=== PATIENT | male | born 1975 | race Two or more races ===

== ENCOUNTER → 2018-12-23 | Outpatient (CLI) | payer OTHER | END | disposition home or self-care (01) | LOC: RAD 11:10 | PROVIDERS: ATTEND Family Medicine | DX: J20.9 Acute bronchitis, unspecified (principal) | CPT/HCPCS: 71046 ==

== ENCOUNTER 2019-07-06 15:46 | Outpatient (CLI) | payer OTHER | END 2019-07-06 23:59 | disposition home or self-care (01) | LOC: RAD 15:46 | PROVIDERS: ATTEND Family Medicine | DX: R05 Cough (principal) | CPT/HCPCS: 71046 ==